=== PATIENT | male | born 1990 | race Caucasian/White ===

== ENCOUNTER 2016-12-18 11:27 | Day surgery (SDC) | payer OTHER ==
[2016-12-08 15:31] VITALS: BMI 36.0
[~2016-12-18] VITALS: Ht 172.7 cm; Wt 106.8 kg
[~2016-12-18 11:27] MED LIST: ATROPINE SULFATE 0.1 MG/ML 5ML SYR IV PRN; CEFAZOLIN 2000 MG/60 ML D5W 60 ML IV SCH; DEXAMETHASONE SOD INJ 4 MG/ML VIAL ONE; EpHEDrine SULFATE INJ 50 MG/ML AMP IV PRN; FENTANYL CITRATE INJ 50 MCG/1 ML 2 ML VIAL IV PRN; FENTANYL CITRATE INJ 50 MCG/1 ML 2 ML VIAL ONE; HEPARIN SOD 5000 UNIT/0.5 ML CARP SQ SCH; HYDROmorphone INJ 1 MG/ML SYR IV PRN; LACTATED RINGER'S 1000ML 1,000 ML IV SCH; LACTATED RINGER'S 1000ML IV SCH; LIDOCAINE HCL 2% 2 ML VIAL (20MG/ML) ONE; MIDAZOLAM HCL 1 MG/ML 2ML VIAL ONE; ONDANSETRON INJ 2 MG/ML 2 ML VIAL IV PRN; ONDANSETRON INJ 2 MG/ML 2 ML VIAL ONE; PROPOFOL IV EMULSION 10 MG/ML 20 ML VIAL IV ONE; ROCURONIUM BROMIDE 10 MG/ML 5 ML VIAL ONE
[2016-12-18 11:48] VITALS: BP 147/92; PULSE 90; TEMP 36.6; O2SAT 97; Ht 172.7 cm; Wt 106.8 kg
--- NOTE | 2016-12-18 11:54 | History and Physical ---
History & Physical Date Dec 18, 2016. Chief Complaint pilonidal cyst History of Present Illness The patient is a 26 year old male with complaints of lower back discomfort with a history of excision approx 11 years ago. still has discomfort/drainage. Additional History Hepatic Disease: No Endocrine Disorder: No Kidney Disease: No Hypertension: No Heart Disease: No Bleeding Tendencies: No Infectious Diseases: No Allergies Coded Allergies: Sulfa Antibiotics (Verified Allergy, Mild, HIVES, 12/18/16) Home Medications No Active Prescriptions or Reported Meds Physical Examination Skin: warm/dry Eyes: normal inspection, EOMI ENT: normal ENT inspection Head: normocephalic Neck: supple, no adenopathy Respiratory/Chest: lungs clear, normal breath sounds Cardiovascular: regular rate, rhythm Abdomen / GI: normal bowel sounds Extremities: normal inspection Addiitonal Comments: sinus tract in lower abdomen c/w pilonidal cyst. noninflammed. Diagnosis recurrent pilonidal cyst Plan of Treatment pilonidal cystectomy with primary closure.
[2016-12-18 11:58] LABS: HEMATOCRIT 41.8 % (42-52); MEAN CELL VOLUME 76.6 fL (80-100); MEAN CORPUSCULAR HEMOGLOBIN 27.5 pg (25-34); MEAN PLATELET VOLUME 10.4 fL (7.4-10.4); PLATELET COUNT 169 K/uL (130-400); RED BLOOD COUNT 5.46 M/uL (4.7-6.1); WHITE BLOOD COUNT 7.31 K/uL (4.8-10.8)
[2016-12-18] MEDS ORDERED: METHYLENE BLUE 0.5% 10 ML VIAL ONE (12:16)
[2016-12-18 12:17] LABS: MEAN CORPUSCULAR HGB CONC 35.9 g/dl (32-36)
[2016-12-18] MEDS ORDERED: HYDR-5688 PO (12:57)
--- NOTE | 2016-12-18 13:00 | Discharge Instructions ---
Discharge Instructions Admission Reason for Admission: Recurrent Pilonidal Cyst Discharge Discharge Diagnosis / Problem: Recurrent Pilonidal Cyst Discharge Goals Goal(s): Decrease discomfort, Improve function Activity Recommendations Activity Limitations: as noted below Lifting Limitations: no more than 5 pounds Exercise/Sports Limitations: until after follow-up appointment May Resume Sexual Activity: after follow-up appointment Shower/Bathe: tomorrow . Instructions / Follow-Up Instructions / Follow-Up Please follow-up with Dr. Arreguin in the office in 1-2 weeks. Please call the office at [phone] with any questions and/or concerns. Current Hospital Diet Patient's current hospital diet: Discharge Diet Recommended Diet: Regular Diet Pending Studies Studies pending at discharge: no Medical Emergencies . Who to Call and When: Medical Emergencies: If at any time you feel your situation is an emergency, please call 911 immediately. . Non-Emergent Contact Non-Emergency issues call your: Primary Care Provider, Surgeon Call Non-Emergent contact if: temperature is above 101, your pain is not controlled, wound has increased drainage, wound has increased redness . "Provider Documentation" section prepared by Pam Koch. VTE Core Measure Inpt VTE Proph given/why not?: Unfractionated heparin SQ, SCD's
[2016-12-18] MEDS ORDERED: PROPOFOL IV EMULSION 10 MG/ML 20 ML VIAL IV ONE (13:08)
[2016-12-18] MEDS ORDERED: NEOSTIGMINE METHYLSULFATE 5 MG/5 ML SYR ONE (13:21)
[2016-12-18] MEDS ORDERED: GLYCOPYRROLATE INJ 0.2 MG/ML VIAL ONE (13:21)
[2016-12-18] MEDS ORDERED: SODIUM CHLORIDE 0.9% 1000ML 1,000 ML IV SCH (13:53)
[2016-12-18] MEDS ORDERED: IBUPROFEN 600 MG TAB PO PRN (14:00)
[2016-12-18] MEDS ORDERED: HYDROCODONE/ACETAMOPHEN 5/325MG TAB PO PRN ×2 (14:00)
[2016-12-18] MEDS ORDERED: ONDANSETRON INJ 2 MG/ML 2 ML VIAL IV PRN (14:00)
[2016-12-18] MEDS ORDERED: KETOROLAC TROMETHAMINE 30 MG/ML VIAL IV. PRN (14:00)
--- NOTE | 2016-12-18 14:00 | [facility] Operative Report ---
Operative Report Operative Date Dec 18, 2016. Pre-Operative Diagnosis Pilonidal cyst Post-Operative Diagnosis recurrent pilonidal cyst Procedure(s) Performed excision of recurrent pilonidal cyst Surgeon Dr. Arreguin Shower Screen Installer Surgeon(s) Pam Koch PA-C Estimated Blood Loss 20 ml Findings recurrent pilonidal cyst Specimens A. Pilonidal cyst Anesthesia GET Complication(s) None Disposition Recovery Room / PACU I attest to the content of the Intraoperative Record and any orders documented therein. Any exceptions are noted below.
[2016-12-18] MEDS ORDERED: FENTANYL CITRATE INJ 50 MCG/1 ML 2 ML VIAL ONE (14:09)
[2016-12-18] MEDS ORDERED: KETOROLAC TROMETHAMINE 30 MG/ML VIAL ONE (14:10)
--- NOTE | 2016-12-18 14:28 | OPERATIVE REPORT ---
DATE OF OPERATION: 12/18/2016 PREOPERATIVE DIAGNOSIS: Recurrent symptomatic pilonidal cyst. POSTOPERATIVE DIAGNOSIS: Same. PROCEDURE: Excision with primary closure recurrent pilonidal cyst. SURGEON: Dr. Arreguin. RADIO TIME BUYER: Pam Koch PA-C. ESTIMATED BLOOD LOSS: 25 mL. COMPLICATIONS: No immediate. ANESTHESIA: General. The patient tolerated the procedure well. OPERATION AND FINDINGS: OPERATIVE NOTE: After informed consent was obtained, the patient was taken to the operating suite and placed in supine position. After successful intubation, the patient was rolled into a prone position and placed jackknife. The buttocks were sprayed with benzoin and taped apart with 3 inch silk tape. The lower back was sterilely prepped and draped in usual fashion. Began by injecting visible sinus tract with methylene blue dye. There were several areas of skin dimpling as well as sinus tracks and we made an elliptical incision around that entire area. I used electrocautery to carry this down through the soft tissue. We made sure not really have any of the blue dye, i.e. cyst behind. We carried this the whole way down essentially to the sacrum. We removed the large cysts with the sinus tracts in 1 big piece. We then thoroughly irrigated the wound, controlled any small bleeding points using electrocautery. The buttocks were then untapped. We closed the wound from deep to superficial using 0 Vicryl for the deep layers, 2-0 Vicryl for mid layers and 2-0 Prolene in an interrupted vertical mattress fashion for the skin. Xeroform and sterile dressing were applied. The patient was awakened, rolled into a prone position, extubated, and transferred to recovery in stable condition. I attest to the content of the Intraoperative Record and any orders documented therein. Any exceptions are noted below. SRIRAMD
[2016-12-18] MEDS ORDERED: LABETALOL HCL IV 5 MG/ML 20ML ONE (14:36)
--- NOTE | 2016-12-18 14:50 | Anesthesiology Progress Note ---
Anesthesia Post Op Note Date & Time Dec 18, 2016 at 14:49 Vital Signs Pain Intensity: 3 Vital Signs Past 12 Hours Date Time Temp Pulse Resp B/P Pulse Ox O2 Delivery O2 Flow Rate FiO2 12/18/16 14:40 76 12 142/99 95 Nasal Cannula 2 12/18/16 14:30 77 15 131/100 94 Nasal Cannula 2 12/18/16 14:20 80 12 139/81 99 Mask 10 12/18/16 14:10 91 16 153/113 98 Mask 10 12/18/16 14:03 36.8 86 14 146/100 98 Mask 10 12/18/16 11:48 36.6 90 18 147/92 97 Room Air Notes Mental Status: alert / awake / arousable, participated in evaluation Pt Amnestic to Procedure: Yes Nausea / Vomiting: adequately controlled Pain: adequately controlled Airway Patency, RR, SpO2: stable & adequate BP & HR: stable & adequate Hydration State: stable & adequate Anesthetic Complications: no major complications apparent
[2016-12-18 15:00] VITALS: BP 135/76; PULSE 74; TEMP 37.1; O2SAT 94
[2016-12-18 15:45] VITALS: BP 108/64; PULSE 80; TEMP 36.9; O2SAT 98
[2016-12-18 16:25] VITALS: BP 128/79; PULSE 85; TEMP 36.4; O2SAT 96
== END 2016-12-18 16:25 | disposition home or self-care (01) ==
LOC: C.ACU 11:27
PROVIDERS: ATTEND Surgery
DX: L05.91 Pilonidal cyst without abscess (principal); Z88.2 Allergy status to sulfonamides